=== PATIENT | male | born 1995 | race African-American/Black ===

== ENCOUNTER 2025-08-13 23:20 | Emergency (ER) | payer MEDICAID ==
[~2025-08-13] VITALS: Ht 170.2 cm; Wt 66.0 kg
[2025-08-13 23:21] VITALS: O2SAT 99
[2025-08-14 00:10] VITALS: BP 150/99; PULSE 94; RESP 14; TEMP 37.1; O2SAT 97
== END 2025-08-14 02:34 | disposition home or self-care (01) ==
LOC: ER 23:20
DX: R41.82 Altered mental status, unspecified (principal); F12.90 Cannabis use, unspecified, uncomplicated; Z98.890 Other specified postprocedural states; Z59.00 Homelessness unspecified
CPT/HCPCS: 99283